=== PATIENT | male | born 1965 | race Caucasian/White ===

== ENCOUNTER 2017-03-15 00:46 | Emergency (ER) | payer OTHER ==
[~2017-03-15] VITALS: Ht 177.8 cm; Wt 81.5 kg
[~2017-03-15 00:46] MED LIST: DULO30CA45 PO; LEVO175T6 PO
[2017-03-15 00:53] VITALS: Ht 177.8 cm; Wt 81.5 kg
[2017-03-15] MEDS ORDERED: METOCLOPRAMIDE 10 MG INJ IV STA (01:14)
[2017-03-15] MEDS ORDERED: SOD CHLORIDE 0.9% 1,000 ML IV STA (01:14)
[2017-03-15] MEDS ORDERED: DIPHENHYDRAMINE 50 MG INJ IV STA (01:14)
[2017-03-15] MEDS ORDERED: KETOROLAC 30 MG INJ IV STA (01:14)
--- NOTE | 2017-03-15 01:28 | ERD ---
ER Documentation Chief Complaint Date/Time DATE: 03/15/17 TIME: 01:20 Chief Complaint HPI This is a 52 year old male presenting to ER with headache and dizziness x 3 hours. Headache began suddenly and is severe. Patient states this feels like the worst headache he's ever had. Patient has history of sinus headaches in the past but states this feels different. No weakness. No nausea or vomiting. Patient states he feels uneasy however denies feeling like the room is spinning or that he is spinning. No fevers or chills. No alcohol or drug use.No fall or trauma to head. Patient did not take any medications at home. ROS All systems reviewed and are negative except as per history of present illness. Medications Home Meds Active Scripts Meclizine Hcl* (Antivert*) 12.5 Mg Tab, 12.5 MG PO Q6H Y for DIZZINESS, #20 TAB Prov:ZOILA PETTIT NP 03/15/17 Ibuprofen* (Motrin*) 600 Mg Tab, 600 MG PO Q6, #30 TAB Prov:ZOILA PETTIT NP 03/15/17 Reported Medications Levothyroxine Sodium* (Levothyroxine Sodium*) 175 Mcg Tablet, 175 MCG PO AC BREAKFAST, TAB 09/07/14 Duloxetine Hcl* (Cymbalta*) 30 Mg Capsule.dr, 90 MG PO DAILY, CAP 09/07/14 Allergies Allergies: Coded Allergies: Sulfa (Sulfonamide Antibiotics) (Unverified Allergy, Unknown, 09/07/14) PMhx/Soc History of Surgery: No Anesthesia Reaction: No Hx Neurological Disorder: No Hx Respiratory Disorders: No Hx Cardiac Disorders: No Hx Psychiatric Problems: No Hx Miscellaneous Medical Probl: No Hx Alcohol Use: Yes Hx Substance Use: Yes Hx Tobacco Use: Yes Physical Exam Vitals Vital Signs Date Time Temp Pulse Resp B/P Pulse Ox O2 Delivery O2 Flow Rate FiO2 03/15/17 03:38 97.3 77 17 119/73 99 Room Air 03/15/17 00:53 98.1 71 16 119/81 98 Physical Exam Const: No acute distress, alert Head: Atraumatic Eyes: Normal Conjunctiva, PERRL, EOMs intact, no swelling ENT: Normal External Ears, Nose and Mouth. Neck: Full range of motion..~ No meningismus. Resp: Clear to auscultation bilaterally Cardio: Regular rate and rhythm, no murmurs Abd: Soft, non tender, non distended. Normal bowel sounds Skin: No petechiae or rashes Back: No midline or flank tenderness Ext: No cyanosis, or edema. 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 Neur: Awake and alert Psych: Normal Mood and Affect Results 24 hrs Laboratory Tests Test 03/15/17 01:29 03/15/17 01:41 Urine Opiates Screen Negative Urine Barbiturates Negative Urine Amphetamines Screen Negative Urine Benzodiazepines Screen Negative Urine Cocaine Screen Negative Urine Cannabinoids Positive Bedside Urine pH (LAB) 5.5 Bedside Urine Protein (LAB) Negative Bedside Urine Glucose (UA) Negative Bedside Urine Ketones (LAB) Negative Bedside Urine Blood Negative Bedside Urine Nitrite (LAB) Negative Bedside Urine Leukocyte Esterase (L Trace Current Medications Medications (Trade) Dose Ordered Sig/Leigh Route PRN Reason Start Time Stop Time Status Last Admin Dose Admin Sodium Chloride (NS) 1,000 ml @ 1,000 mls/hr Q1H STAT IV 03/15/17 01:14 03/15/17 02:13 DC 03/15/17 01:49 Metoclopramide HCl (Reglan) 10 mg ONCE STAT IV 03/15/17 01:14 03/15/17 01:16 DC 03/15/17 01:49 Ketorolac Tromethamine (Toradol) 30 mg ONCE STAT IV 03/15/17 01:14 03/15/17 01:16 DC 03/15/17 01:50 Diphenhydramine HCl (Benadryl) 25 mg ONCE STAT IV 03/15/17 01:14 03/15/17 01:16 DC 03/15/17 01:49 Procedures/[place] [id number] Radiology Main Line: [phone] DIAGNOSTIC IMAGING REPORT Patient: MILDRED RINCON : 1965 Age: 52 Sex: M MR #: [id number] DOS: 03/15/17 0114 Ordering MD: ZOILA PETTIT NP Location: [facility] Room/Bed: PROCEDURE: CT Brain without contrast. CLINICAL INDICATION: Headache TECHNIQUE: Axial images from the skull base through the vertex without IV contrast. Multiplanar reformatted images were made. Images were reviewed on a PACS workstation. The CTDIvol is 45.01 mGy and the DLP is 720.23 mGycm. One or more of the following dose reduction techniques were used: automated exposure control, adjustment of the mA and/or kV according to patient size, or use of iterative reconstruction technique. COMPARISON: None. FINDINGS: Mild cortical atrophy is present. There is a focal area of hyperdensity in the right frontal lobe medially adjacent to the falx seen on axial image 24, coronal image 47, and sagittal image 48. Best seen on axial image 21 and coronal image 71 in the high right periventricular white matter is a focal rounded 4 mm hypodensity with a peripheral hyperdense focus at the lateral margin. The exam is otherwise unremarkable without evidence of acute infarction , intracranial hemorrhage, or extraaxial fluid collection. Ventricular size is normal. Prominent cerumen is seen in the external auditory canals. IMPRESSION: Small hypodense focus in the posterior right periventricular white matter with a small hyperdense focus at the periphery. This may be due to old infarct or infection. Focal area of hyperdensity in the medial right frontal lobe may be due to motion artifact. MRI would be helpful for further evaluation of either abnormality. If MRI is not available, repeat CT without motion artifact may at least prove the right frontal lobe abnormality to be motion artifact related. Results were called to the physician's assistant head cashier, Zoila Pettit, at 03/15/2017 2:53: 24 AM MDM: This is a 52-year-old male presenting to the emergency department with sudden onset headache and dizziness about 3 hours prior to arrival. Patient states he feels unsteady however no feeling like the room is spinning or that he is spinning.No fevers or chills. Physical exam is overall unremarkable. No syncopal episodes.No diplopia, loss of vision or blurry vision. No photophobia. No trauma to head or fall. No loss of consciousness. No nausea or vomiting. No confusion or altered mental status. IV access obtained and patient given Reglan, Benadryl and Toradol while in the ED. Upon reassessment of patient, patient states pain has improved significantly. Patient denies ataxic gait, slurred speech, numbness of the face or body, weakness, clumsiness, or incoordination. CT head reviewed by radiologist as small hypodense focus in the posterior right periventricular white matter with a small hyperdense focus at the periphery. This may be due to old infarct or infection. Focal area of hyperdensity in the medial right frontal lobe may be due to motion artifact. Consulted Dr. Varela regarding this patient who states that patient is safe to discharge home. Low suspicion for CVA, TIA, meningitis, subdural hematoma, intracranial hemorrhage or mass. Differential diagnosis includes but not limited to tension headache, migraine headache, cluster headache, sinus headache, sinusitis, trigeminal neuralgia, herpes zoster and postherpetic neuralgia. Patient is appropriate for outpatient management will be given prescription for ibuprofen and meclizine. Instructed patient to follow-up with primary care provider in the next 2-3 days for reassessment. Resources provided. Return to ED for any high fever, chest pain, difficulty breathing, shortness breath, wheezing, vomiting, diarrhea, abdominal pain or any new or worsening symptoms. Patient verbalizes understanding. All questions answered at discharge. Disclaimer: Inadvertent spelling and grammatical errors are likely due to EHR/ dictation software use and do not reflect on the overall quality of patient care. Also, please note that the electronic time recorded on this note does not necessarily reflect the actual time of the patient encounter. Departure Diagnosis: Primary Impression: Headache Headache type: unspecified Headache chronicity pattern: acute headache Intractability: not intractable Qualified Code: R51 - Acute nonintractable headache, unspecified headache type Additional Impression: Dizziness Condition: Stable ZOILA PETTIT NP Mar 15, 2017 01:28
[2017-03-15 01:34] LABS: URINE BLOOD (Dip) POC Negative (NEGATIVE)
[2017-03-15 02:24] LABS: BARBITURATES Negative (NEGATIVE); BENZODIAZEPINES Negative (NEGATIVE); CANNABINOIDS Positive (NEGATIVE); COCAINE Negative (NEGATIVE); OPIATES Negative (NEGATIVE)
--- NOTE | 2017-03-15 02:55 | RADRPT ---
PROCEDURE: CT Brain without contrast. CLINICAL INDICATION: Headache TECHNIQUE: Axial images from the skull base through the vertex without IV contrast. Multiplanar r eformatted images were made. Images were reviewed on a PACS workstation. The CTDIvol is 45.01 mGy and the DLP is 720.23 mGycm. One or more of the following dose reduction techniques were used: auto mated exposure control, adjustment of the mA and/or kV according to patient size, or use of iterativ e reconstruction technique. COMPARISON: None. FINDINGS: Mild cortical atrophy is present. There is a focal area of hyperdensity in the right frontal lobe me dially adjacent to the falx seen on axial image 24, coronal image 47, and sagittal image 48. Best se en on axial image 21 and coronal image 71 in the high right periventricular white matter is a focal rounded 4 mm hypodensity with a peripheral hyperdense focus at the lateral margin. The exam is other ham[place] unremarkable without evidence of acute infarction, intracranial hemorrhage, or extraaxial fluid collection. Ventricular size is normal. Prominent cerumen is seen in the external auditory canals . IMPRESSION: Small hypodense focus in the posterior right periventricular white matter with a small hyperdense fo cus at the periphery. This may be due to old infarct or infection. Focal area of hyperdensity in the medial right frontal lobe may be due to motion artifact. MRI would be helpful for further evaluatio n of either abnormality. If MRI is not available, repeat CT without motion artifact may at least pro ve the right frontal lobe abnormality to be motion artifact related. Results were called to the physician's instruction assistant principal, Zoila Shipley, at 03/15/2017 2:53:24 AM RPTAT: [facility] Physician Todd Date Time Electronically viewed and signed by Physician Todd on 03/15/2017 02:54 LE/
[2017-03-15] MEDS ORDERED: MECL12.574 PO (03:23)
[2017-03-15] MEDS ORDERED: IBUP-1542 PO (03:23)
[2017-03-15 03:38] VITALS: BP 119/73; PULSE 77; RESP 17; TEMP 97.3
== END 2017-03-15 03:38 | disposition home or self-care (01) ==
LOC: FTE 00:46
DX: R51 Headache (principal); R42 Dizziness and giddiness; Z87.891 Personal history of nicotine dependence
CPT/HCPCS: 70450; 80307; 81003; 96361; 96374; 96375; J1200; J1885; J2765; J7030; Z7502